=== PATIENT | female | born 1950 | race Caucasian/White ===

== ENCOUNTER → 2019-08-27 12:18 | Outpatient (BNVA) | payer MEDICARE, MEDICAID, SELFPAY | PROVIDERS: PCP Family Medicine; Referring Provider Family Medicine; Visit Provider Psychiatry & Neurology Neurology | DX: M21.371 Foot drop, right foot (principal); G57.30 Lesion of lateral popliteal nerve, unspecified lower limb; I10 Essential (primary) hypertension; J44.9 Chronic obstructive pulmonary disease, unspecified; F17.210 Nicotine dependence, cigarettes, uncomplicated | CPT/HCPCS: 99204 ==